=== PATIENT | female | born 1995 | race American Indian/Alaskan Native ===

== ENCOUNTER 2018-09-10 09:10 | Day surgery (SDC) | payer OTHER ==
[2018-09-10] MEDS ORDERED: NITROSTAT SL ONE ×2 (09:35→13:33)
[2018-09-10] MEDS ORDERED: ATROPINE IV ONE (09:36)
[2018-09-10 12:36] LABS: Blood Urea Nitrogen 11 mg/dL (7-17)
[2018-09-10] MEDS ORDERED: LOPRESSOR IV ONE (13:33)
[2018-09-10] MEDS ORDERED: ATROPINE 0.1% (CARDIAC) ONE (13:34)
--- NOTE | 2018-09-10 15:36 | Cat Scan Report ---
LIMITED CT OF THE CHEST PER CT CORONARY ANGIOGRAPHY PROTOCOL: History: Chest pain. Limited CT of the chest per CT coronary angiography protocol is submitted. The cardiac portion of the exam has been previously interpreted by the Medical Claims Analyst. The included portions of the lungs appear clear without evidence for nodule, mass or infiltrate. The included pleural spaces are clear. No mediastinal or hilar adenopathy is evident. Included upper abdomen and solid abdominal organs are grossly within normal limits. IMPRESSION: Unremarkable limited CT of the chest as noted.
[2018-09-10 16:21] VITALS: BP 134/62
--- NOTE | 2018-09-11 08:12 | CT Calcium Scoring Report ---
Coronary Calcium Score Date of service: 09/11/18 Procedure: High-resolution computed tomographic imaging of the chest was performed on09/10/18 with particular attention paid to the coronary arteries. Images from the examination were analyzed for the presence and extent of coronary artery calcification, using coronary calcium quantification software. The patient tolerated the procedure well and there were no complications. The results of the coronary calcification analysis are provided below. The patient scores are compared with published data related to scores for people of a similar age and the same gender. - Findings Total Agatson Score: 0 Findings: Cardiac CTA Indication: chest pain Informed consent obtained Procedure: The patient was brought to the cardiac ct laboratory at [facility] in stable condition after a 4 hour fast. Heart rate was regulated by beta blockade. Sublingual ngt was administered. A coronary calcium score was performed via the Agatston method. Left ventricular function was assessed by the threshold based volumetric segmentation approach. A separate radiology assessment of the non cardiac structures in the field of view will be provided. Superior vena cava in the field of view appears normal Inferior vena cava in the filed of view appears normal Ascending aorta in the field of view appears normal Descending aorta in the field of view appears normal Pulmonary artery in the filed of view appears normal Pulmonary veins enter the left atrium appropriately Left ventricle appears normal Right Ventricle appears normal Left atrium apeears normal Left atrial appendage appears normal Right atrium appears normal Interventricular septum appears normal Interatrial septum appears normal Aortic valve appears normal Mitral Valve appears normal Intracardiac mass: none Pericardial effusion: none Coronary Angiography: Dominance: Right Origins: Normal Left main appears normal Left anterior descending coronary artery and diagonal branches appear normal Circumflex coronary artery and obtuse marginal branches appear normal Right coronary artery appears normal Coronary artery calcium score: 0 The procedure was well tolerated. There were no complicaltions
== END 2018-09-10 09:11 | disposition home or self-care (01) ==
LOC: CATHLABREC 09:10 → EDSTATUS 09:45
PROVIDERS: ATTEND Internal Medicine Cardiovascular Disease
DX: R07.89 Other chest pain (principal); I10 Essential (primary) hypertension; R94.30 Abnormal result of cardiovascular function study, unspecified; J45.909 Unspecified asthma, uncomplicated; Z79.899 Other long term (current) drug therapy; Z79.01 Long term (current) use of anticoagulants
CPT/HCPCS: 36415; 75574; 82565; 84520; J0461; Q9967